=== PATIENT | male | born 1945 | race Caucasian/White ===

== ENCOUNTER 2020-12-24 18:10 | Inpatient (IN) | payer OTHER ==
[~2020-12-24] VITALS: Ht 172.7 cm; Wt 96.5 kg
[2020-12-24] MEDS ORDERED: ATOR40TA PO ×2 (20:03)
[2020-12-24] MEDS ORDERED: ALOGLIPTIN12.5 M1 PO (20:03)
[2020-12-24] MEDS ORDERED: AMLO10 PO (20:03)
[2020-12-24] MEDS ORDERED: MOBIC15 MG PO (20:04)
[2020-12-24] MEDS ORDERED: FINA5 PO (20:04)
[2020-12-24] MEDS ORDERED: METF500 PO (20:04)
[2020-12-24] MEDS ORDERED: BASAGLAR K100 UNIT/1 SC (20:04)
[2020-12-24] MEDS ORDERED: Vitamin B Comple1 EA PO (20:05)
[2020-12-24] MEDS ORDERED: METO25 PO (20:05)
[2020-12-24] MEDS ORDERED: TAMS.4ER PO (20:05)
[2020-12-24 20:38] LABS: SARS-Cov-2 (COVID-19) PCR, MMC POSITIVE (NEGATIVE)
[2020-12-25 00:33] LABS: BASOPHILS PERCENT AUTO 0 % (0-2); EOSINOPHILS PERCENT AUTO 0 % (0-6); Hematocrit 35.9 % (37.0-53.0); Hemoglobin 12.4 g/dL (13.5-17.5); IMMATURE GRAN ABSOLUTE AUTO 0.05 K/mm3 (0.00-0.10); IMMATURE GRAN PERCENT AUTO 1 % (0-1); LYMPHOCYTES ABSOLUTE AUTO 0.26 K/mm3 (0.84-5.20); LYMPHOCYTES PERCENT AUTO 7 % (21-46); MONOCYTES ABSOLUTE AUTO 0.08 K/mm3 (0.16-1.47); MONOCYTES PERCENT AUTO 2 % (4-13); Mean Corpuscular HGB 30.8 pg (26.0-34.0); Mean Corpuscular HGB Conc 34.5 g/dL (31.5-36.5); Mean Corpuscular Volume 89 fL (80-100); Mean Platelet Volume 9.5 fL (9.1-12.4); NEUTROPHILS ABSOLUTE AUTO 3.41 K/mm3 (1.96-9.15); NEUTROPHILS PERCENT AUTO 90 % (41-73); Platelet Count 190 K/mm3 (150-400); RDW Coefficient Variation 13.1 % (11.7-14.2); RDW Standard Deviation 43.5 fL (35.1-46.3); Red Blood Cell Count 4.02 M/mm3 (4.30-5.90)
[2020-12-25 00:52] LABS: Alanine Aminotransfer (ALT/SGP 51 U/L (12-78); Albumin, Blood 2.3 g/dL (3.4-5.0); Albumin/Globulin Ratio 0.5 (0.8-1.8); Alk Phos 65 U/L (50-136); Anion Gap 7 mmol/L (6-16); Aspartate Aminotrans (AST/SGOT 44 U/L (12-37); Bilirubin, Total 0.5 mg/dL (0.1-1.0); Blood Urea Nitrogen 17 mg/dL (8-24); CO2, Blood 24 mmol/L (21-32); Calcium, Blood 8.2 mg/dL (8.5-10.1); Chloride, Blood 106 mmol/L (98-108); Creatinine, Blood 0.81 mg/dL (0.60-1.20); Globulin, Blood 4.7 g/dL (2.2-4.0); Glomerular Filtration Rate >60 (60-); Glucose, Blood 221 mg/dL (70-99); Potassium, Blood 3.6 mmol/L (3.5-5.5); Sodium, Blood 137 mmol/L (136-145)
--- NOTE | 2020-12-25 06:22 | NUR ---
SHIFT SUMMARY PT ALERT AND ORIENTED. PLEASANT AND COOPERATIVE TO CARE. VSS. ON 50L AIRVO 85% FIO2, O2 SATS MAINTAINING OVER 90%. TELE READS 60'S NSR. BP STABLE. FREQUENTLY URINATED THROUGHOUT THE NIGHT. X1 ASSIST TO BEDSIDE URINAL. DESATS WITH ACTIVITY. 20 GUAGE RIGHT A/C SALINE LOCKED. LEFT IN BED RESTING WITH CALL ALARM AT SIDE. WILL CONTINUE TO MONITOR UNTIL REPORT GIVEN
--- NOTE | 2020-12-25 10:14 | NUR ---
[id number]: SAFE HANDOFF REC'D, ASSUMED CARE OF PT, ASSESSMENT COMPLETED. PT ADMITTED FOR COVID PNA WITH ACUTE HYPOXIC RESP FAILURE, HE IS CURRENTLY REQUIRING HI-FLOW O2 AT 40L AND 50% FIO2, SPO2 IS IN THE LOW 90s WITH THAT. PT IS RESTING IN BED, DENIES PAIN, HE IS NOT IN ANY ACUTE DISTRESS AND IS ABLE TO TALK IN FUILL SENTENCES. PT IS NPO AT THIS TIME, HE IS DIABETIC WITH SLIDING SCALE INSULIN COVERAGE ORDERED. [id number]: PT ASSISTED TO STAND AT SIDE OF BED TO VOID, FIO2 INCREASED TO 95% WHILE OOB AND HE WAS ABLE TO TOLERATE STANDING, SPO2 DOWN TO 87%. HE HAS A HX OF SIGNIFICANT BPH WITH DIFFICULTY VOIDING. HE WAS ABLE TO VOID SMALL AMOUNT. SPOKE WITH DR GOMEZ AND REC'D ORDER TO PLACE CREWS CATH SHORT TERM IF URINARY RETENTION PERSISTS OR WORSENS. ALSO INCREASED DIET TO GENERAL ADA.
--- NOTE | 2020-12-25 18:38 | NUR ---
END OF SHIFT SUMMARY: PT WITH DECREASING OXYGEN NEEDS THROUGHOUT THE SHIFT, WEANED TO 8L VIA STANDARD HIGH FLOW CANNULA, HE HAS BEEN SITTING UP IN CHAIR MOST OF DAY AND ABLE TO AMBULATE TO THE BR USING FWW AND 1PA, PT CONTINUES TO HAVE SOME DIFFICULTY EMPTYING BLADDER BUT HAS BEEN ABLE TO VOID ADEQUATELY.
[2020-12-26 04:23] LABS: BASOPHILS PERCENT AUTO 0 % (0-2); EOSINOPHILS PERCENT AUTO 0 % (0-6); Hematocrit 41.7 % (37.0-53.0); Hemoglobin 14.1 g/dL (13.5-17.5); IMMATURE GRAN ABSOLUTE AUTO 0.05 K/mm3 (0.00-0.10); IMMATURE GRAN PERCENT AUTO 1 % (0-1); LYMPHOCYTES ABSOLUTE AUTO 0.48 K/mm3 (0.84-5.20); LYMPHOCYTES PERCENT AUTO 7 % (21-46); MONOCYTES ABSOLUTE AUTO 0.25 K/mm3 (0.16-1.47); MONOCYTES PERCENT AUTO 4 % (4-13); Mean Corpuscular HGB 30.5 pg (26.0-34.0); Mean Corpuscular HGB Conc 33.8 g/dL (31.5-36.5); Mean Corpuscular Volume 90 fL (80-100); Mean Platelet Volume 10.1 fL (9.1-12.4); NEUTROPHILS ABSOLUTE AUTO 6.36 K/mm3 (1.96-9.15); NEUTROPHILS PERCENT AUTO 89 % (41-73); Platelet Count 284 K/mm3 (150-400); RDW Coefficient Variation 13.1 % (11.7-14.2); RDW Standard Deviation 43.8 fL (35.1-46.3); Red Blood Cell Count 4.62 M/mm3 (4.30-5.90); White Blood Cell Count 7.14 K/mm3 (4.00-11.30)
[2020-12-26 04:39] LABS: International Normalized Ratio 1.14; Prothrombin Time Results 11.9 Sec (9.7-11.5)
[2020-12-26 04:55] LABS: Alanine Aminotransfer (ALT/SGP 51 U/L (12-78); Albumin, Blood 2.4 g/dL (3.4-5.0); Albumin/Globulin Ratio 0.5 (0.8-1.8); Alk Phos 69 U/L (50-136); Anion Gap 8 mmol/L (6-16); Aspartate Aminotrans (AST/SGOT 29 U/L (12-37); Bilirubin, Total 0.4 mg/dL (0.1-1.0); Blood Urea Nitrogen 23 mg/dL (8-24); Bun/Creatinine Ratio 28.2 (12.0-20.0); CO2, Blood 24 mmol/L (21-32); Calcium, Blood 8.9 mg/dL (8.5-10.1); Chloride, Blood 106 mmol/L (98-108); Creatinine, Blood 0.82 mg/dL (0.60-1.20); Globulin, Blood 5.2 g/dL (2.2-4.0); Glomerular Filtration Rate >60 (60-); Glucose, Blood 152 mg/dL (70-99); Magnesium, Blood 2.4 mg/dL (1.6-2.4); Phosphorus, Blood 2.3 mg/dL (2.5-4.9); Potassium, Blood 3.9 mmol/L (3.5-5.5); Sodium, Blood 138 mmol/L (136-145); Total Protein, Blood 7.6 g/dL (6.4-8.2)
--- NOTE | 2020-12-26 05:40 | NUR ---
SHIFT SUMMARY PATIENT FOUND TO BE A PLESANT MAN WHO IS A&OX4, [place], WITH SOME GENERALIZED WEAKNESS. VSS. NSR ON THE MONITOR. ON 8L HFNC SATING LOW 90'S AND THEN CPAP WITH 8L BLEED IN FOR SLEEP. INFREQUENT DRY COUGH. REFUSING PRONING BUT TURNING SELF WELL SIDE TO SIDE. TOLERATING ADA DIET WITHOUT ISSUE. URINARY FREQUENCY NOTED. NO ACUTE CONCERNS AT THIS TIME. WILL CONTINUE PLAN OF CARE UNTIL REPORT GIVEN TO JOE TEE.
--- NOTE | 2020-12-26 12:23 | NUR ---
[id number]: SAFE HANDOFF REC'D, ASSUMED CARE OF PT, ASSESSMENT COMPLETED. PT IS RESTING IN BED, DENIES PAIN, REPORTS POOR SLEEP OVERNIGHT, STATES HE WAS HAVING RESTLESS LEGS. PT REMAINS OF STANDARD HI-FLOW CANNULA AT 8L, SPO2 NOTED TO BE 87-90% ON THAT, INCREASED TO 10L, WILL MONITOR. PT HAS A HX OF BPH AND TYPICALLY NEEDS TO STAND TO VOID, REQUIRES 1PA AND USES A FWW. NSR W/PACs PER TELE, PT IS NORMOTENSIVE. PT REPORTS DISCOMFORT TO HIS COCCYX/BOTTOM, AREA FOUND TO BE BLANCHABLE BUT PINK, PT REPOSITIONED TO HIS SIDE, STATES MUCH MORE COMFORTABLE. [id number]: PT INCREASED TO 12L PER HIFLOW CANNULA, SPO2 88-91%. 1200: PT UP TO CHAIR FOR LUNCH, BLOOD SUGAR OF 269, COVERED WITH LOW DOSE SS INSULIN. PT HAS ORDER FOR MEDICAL STATUS.
--- NOTE | 2020-12-26 14:31 | NUR ---
1345: PT WITH MED/TELE ORDER, REPORT CALLED TO [place] [facility]. 1430: PT TRANSPORTED VIA W/C WITH O2 TO ROOM 330, IN STABLE CONDITION.
--- NOTE | 2020-12-26 19:02 | NUR ---
PT WAS RECEIVED FROM PCU AT APPROX 1435. HE IS ALERT AND ORIENTED X 3. HE DENIES PAIN. VS WNL. HE IS ON 12L HIGH FLOW OYGEN WITH SAT 90-93%. HIS O2 SAT DROPS WITH ACTIVITIES. HE IS CALM AND VERY PLEASANT. HE IS SITTING UP TO THE CHAIR. HE IS NOT IN ACUTE DISTRESS. OOB WITH STANDBY ASSIST WITH FRONT WHEEL WALKER. HE WAS TRANSPORTED BY AMBULANCE TO [facility]. HE HAD HEPLOCK 20G IN RIGHT AND LEFT FOREARM.
== END 2020-12-26 17:15 | DRG 177 ==
LOC: ER 18:10 → PCU 19:45 → MEDS 12-26 14:41
PROVIDERS: Emergency Medicine; Family Medicine; ADMIT Internal Medicine
PROC: 8E0ZXY6 Isolation (ICD-10-PCS; principal; 2020-12-24)
PROC: XW033E5 Introduction of Remdesivir Anti-infective into Peripheral Vein, Percutaneous Approach, New Technology Group 5 (ICD-10-PCS; 2020-12-24)
PROC: 3E0333Z Introduction of Anti-inflammatory into Peripheral Vein, Percutaneous Approach (ICD-10-PCS; 2020-12-24)
DX: U07.1 COVID-19 (principal); J12.82 Pneumonia due to coronavirus disease 2019; J96.01 Acute respiratory failure with hypoxia; I10 Essential (primary) hypertension; E11.9 Type 2 diabetes mellitus without complications; E83.39 Other disorders of phosphorus metabolism; E78.5 Hyperlipidemia, unspecified; N40.0 Benign prostatic hyperplasia without lower urinary tract symptoms; Z90.79 Acquired absence of other genital organ(s); Z98.890 Other specified postprocedural states; Z79.84 Long term (current) use of oral hypoglycemic drugs; Z79.899 Other long term (current) drug therapy
CPT/HCPCS: 36415; 80053; 82947; 83735; 83880; 84100; 84145; 85025; 85610; 85730; 86140; 93005; 93010; 94660; 94762; 96374; 96375; 99285-25; A9270; J1100; J1650; J1815; U0004

== ENCOUNTER → 2020-12-24 | Outpatient (CLI) | payer OTHER ==
[~2020-12-24] MED LIST: ALOGLIPTIN12.5 M1 PO; AMLO10 PO; ATOR40TA PO; BASAGLAR K100 UNIT/1 SC; FINA5 PO; METF500 PO; METO25 PO; MOBIC15 MG PO; TAMS.4ER PO; Vitamin B Comple1 EA PO
[2020-12-26 16:04] LABS: CORONAVIRUS (COVID19) CSH-NRL Positive (Negative)
== END | disposition home or self-care (01) ==
LOC: LAB SHORT 13:30
PROVIDERS: Nurse Practitioner Family
DX: U07.1 COVID-19 (principal)
CPT/HCPCS: U0003